=== PATIENT | female | born 1975 | race Caucasian/White ===

== ENCOUNTER 2017-10-12 01:01 | Emergency (ER) | payer OTHER ==
[~2017-10-12] VITALS: Ht 172.7 cm; Wt 90.0 kg
[~2017-10-12 01:01] MED LIST: AMOXICILLIN500 MG PO; CEPH500C57 OR; FLEXERIL PO; NAPROSYN500 MG PO; NO; ROBITUSSIN200 MG/10 PO; ULTRAM50 M1 PO; VENTOLIN HFA IN; ZPAK PO
[2017-10-12] MEDS ORDERED: AMOXICILLIN500 MG PO (01:49)
[2017-10-12] MEDS ORDERED: LORTAB 1010 MG PO (01:49)
[2017-10-12 02:30] VITALS: BP 119/62
== END 2017-10-12 02:33 | disposition home or self-care (01) | DRG 159 ==
LOC: ED 01:01
DX: K04.7 Periapical abscess without sinus (principal); K08.89 Other specified disorders of teeth and supporting structures

== ENCOUNTER 2018-05-30 16:15 | Emergency (ER) | payer OTHER ==
[~2018-05-30] VITALS: Ht 172.7 cm; Wt 81.8 kg
[~2018-05-30 16:15] MED LIST changes: +LORTAB 1010 MG PO
[2018-05-30 16:53] LABS: IMMATURE GRANULOCYTES 0.4 % (0.0-5.0); MEAN CELL VOLUME 97.9 fL CALC (80.0-100.0); MEAN CORPUSCULAR HGB 33.5 pG CALC (26.0-32.0); MEAN CORPUSCULAR HGB CONC 34.2 g/L CALC (32.0-36.0); NEUT# 4.01 thou/uL (2.00-7.15); RED BLOOD COUNT 4.83 mill/uL (4.20-5.60); RED CELL DISTRI WIDTH 12.2 % (11.5-15.5)
[2018-05-30 17:03] LABS: HEMATOCRIT 47.3 % (37.0-47.0); HEMOGLOBIN 16.2 g/dl (12.0-16.0)
[2018-05-30 17:15] LABS: ALBUMIN 4.2 g/dL (3.2-5.0); ALKALINE PHOSPHATASE 67 u/l (38-126); ANION GAP 17 (6-22 (CALC)); BILIRUBIN, TOTAL 0.6 mg/dL (0.0-1.4); BUN 9 mg/dL (7-17); BUN/CREATININE RATIO 15 (12-20 (CALC)); CARBON DIOXIDE 22 mmol/l (22-30); CHLORIDE 106 mmol/l (95-108); CREATININE 0.6 mg/dL (0.5-1.0); GFR > 60 ML/MIN (>=60 (CALC)); GFR FOR AFR.AMER. > 60 ML/MIN (>=60 (CALC)); POTASSIUM 3.9 mmol/l (3.5-5.1); SGOT/AST 20 u/l (14-36); SODIUM 141 mmol/l (137-146); TOTAL PROTEIN 7.2 g/dL (6.3-8.2)
[2018-05-30] MEDS ORDERED: AMOXICILLIN500 MG PO (17:25)
[2018-05-30] MEDS ORDERED: ULTRAM50 M1 PO (17:25)
[2018-05-30] MEDS ORDERED: ZOFRAN ODT4 MG PO (17:25)
[2018-05-30 17:32] VITALS: BP 119/95
== END 2018-05-30 17:33 | disposition home or self-care (01) ==
LOC: ED 16:15
PROVIDERS: Emergency Medicine
DX: K04.7 Periapical abscess without sinus (principal); J45.901 Unspecified asthma with (acute) exacerbation; F17.210 Nicotine dependence, cigarettes, uncomplicated; K08.89 Other specified disorders of teeth and supporting structures; R50.9 Fever, unspecified; R11.2 Nausea with vomiting, unspecified; R53.1 Weakness; R68.84 Jaw pain

== ENCOUNTER 2019-04-06 06:10 | Day surgery (SDC) | payer OTHER ==
[~2019-04-06] VITALS: Ht 170.2 cm; Wt 79.4 kg
[~2019-04-06 06:10] MED LIST changes: +DICLOFENAC75 MG PO; +PROVENTIL IN; +VIT B-COMPLX100 MG MT; +ZOFRAN ODT4 MG PO
[2019-04-06 11:10] VITALS: BP 135/81
== END 2019-04-06 08:04 | disposition home or self-care (01) ==
LOC: ORM 06:10
PROVIDERS: ATTEND Anesthesiology Pain Medicine
DX: M54.5 Low back pain (principal); M12.9 Arthropathy, unspecified

== ENCOUNTER 2019-04-20 06:47 | Day surgery (SDC) | payer OTHER ==
[2019-04-20 11:44] VITALS: BP 146/89
[2019-07-12] MEDS ORDERED: MEDDOSEPAK PO (09:46)
== END 2019-04-20 07:58 | disposition home or self-care (01) ==
LOC: ORM 06:47
PROVIDERS: ATTEND Anesthesiology Pain Medicine
DX: M54.5 Low back pain (principal); M12.9 Arthropathy, unspecified

== ENCOUNTER 2019-05-25 | Day surgery (SDC) | payer OTHER ==
[2019-07-12] MEDS ORDERED: MEDDOSEPAK PO (09:46)
[2019-08-02] MEDS ORDERED: LYRICA150 MG PO (10:19)
[2019-08-02] MEDS ORDERED: NORCO1 TA2 PO ×2 (10:22→10:24)
[2019-09-06] MEDS ORDERED: CYMBALTA20 MG PO (09:58)
[2019-09-06] MEDS ORDERED: LYRICA225 MG PO (10:17)
[2019-10-04] MEDS ORDERED: NORCO1 TA2 PO (10:49)
[2019-10-04] MEDS ORDERED: LYRICA225 MG PO (10:51)
== END 2019-05-25 08:53 | disposition home or self-care (01) ==
DX: M54.5 Low back pain (principal)

== ENCOUNTER 2021-02-22 06:12 | Emergency (ER) | payer OTHER ==
[~2021-02-22] VITALS: Ht 170.2 cm; Wt 86.0 kg
[~2021-02-22 06:12] MED LIST changes: +CYMBALTA20 MG PO; +LYRICA150 MG PO; +LYRICA225 MG PO; +MEDDOSEPAK PO; +NORCO1 TA2 PO
[2021-02-22 07:49] LABS: HEMOGLOBIN 16.1 g/dl (12.0-16.0); IMMATURE GRANULOCYTES 0.2 % (0.0-5.0); MEAN CELL VOLUME 100.8 fL CALC (80.0-100.0); MEAN CORPUSCULAR HGB 33.8 pG CALC (26.0-32.0); MEAN CORPUSCULAR HGB CONC 33.5 g/dL CAL (32.0-36.0); NEUT# 5.25 thou/uL (2.00-7.15); RED BLOOD COUNT 4.76 mill/uL (4.20-5.60); RED CELL DISTRI WIDTH 12.9 % (11.5-15.5)
[2021-02-22 08:03] LABS: ALBUMIN 4.3 g/dL (3.2-5.0); ALKALINE PHOSPHATASE 61 u/l (38-126); ANION GAP 12 (6-22 (CALC)); BILIRUBIN, TOTAL 0.6 mg/dL (0.0-1.4); BUN 5 mg/dL (7-17); BUN/CREATININE RATIO 7 (12-20 (CALC)); CARBON DIOXIDE 28 mmol/l (22-30); CHLORIDE 103 mmol/l (95-108); CPK 91 u/l (30-165); CREATININE 0.7 mg/dL (0.5-1.0); GFR > 60 ML/MIN (>=60 (CALC)); GFR FOR AFR.AMER. > 60 ML/MIN (>=60 (CALC)); SGOT/AST 23 u/l (14-36); SODIUM 139 mmol/l (137-146); TOTAL PROTEIN 7.4 g/dL (6.3-8.2)
[2021-02-22 08:10] LABS: MYOGLOBIN 43 ng/mL (0 - 62)
[2021-02-22] MEDS ORDERED: PREDNISONE50 MG PO (09:58)
[2021-02-22 10:36] VITALS: BP 135/79
== END 2021-02-22 10:44 | disposition home or self-care (01) ==
LOC: ED 06:12
PROVIDERS: Family Medicine
DX: M25.552 Pain in left hip (principal); G89.29 Other chronic pain; L50.9 Urticaria, unspecified; L29.9 Pruritus, unspecified; F17.210 Nicotine dependence, cigarettes, uncomplicated
CPT/HCPCS: Q9967